=== PATIENT | male | born 1980 | race Caucasian/White ===

== ENCOUNTER 2018-08-02 07:50 | Emergency (ER) | payer SELFPAY ==
[~2018-08-02] VITALS: Ht 182.9 cm; Wt 95.3 kg
[2018-08-02 07:55] VITALS: BP 144/94
[2018-08-02] MEDS ORDERED: D-ME118S2 PO (08:29)
[2018-08-02] MEDS ORDERED: IBUP800T19 PO (08:29)
[2018-08-02] MEDS ORDERED: AMOX500T PO (08:29)
--- NOTE | 2018-08-02 08:30 | PHYS DOC ---
Past History Past Medical History: Diabetes Past Surgical History: No Surgical History Smoking: Chew Additional Smoking Information: CHEWS TOBACCO Alcohol Use: Occasionally Additional Alcohol Information: DRINKS EVERY OTHER DAY Drug Use: None Adult General Chief Complaint Chief Complaint: SORE THROAT HPI HPI Patient is a 37-year-old male presents with sore throat, congestion, and cough that is been present for the past 2-3 days. Patient's diagnosed with strep throat and bronchitis yesterday. Subjective fever at home, no home thermometer available. Nothing makes the symptoms better or worse. No difficulty breathing. No difficulty swallowing but increased discomfort with swallowing. Symptoms are moderate in intensity.[] Review of Systems Review of Systems Constitutional: Denies weight loss or chills[] Eyes: Denies change in visual acuity, redness, or eye pain [] HENT: See history of present illness[] Respiratory: Denies shortness of breath, see history of present illness [] Cardiovascular: No chest pain or palpitations[] GI: Denies abdominal pain, nausea, vomiting, bloody stools or diarrhea [] : Denies dysuria or hematuria [] Musculoskeletal: Denies back pain or joint pain [] Integument: Denies rash or skin lesions [] Neurologic: Denies headache, focal weakness or sensory changes [] Endocrine: Denies polyuria or polydipsia [] All other systems were reviewed and found to be within normal limits, except as documented in this note. Physical Exam Physical Exam Constitutional: Well developed, well nourished, no acute distress, non-toxic appearance. [] HENT: Normocephalic, atraumatic, bilateral external ears normal, oropharynx moist, bilateral tonsillar edema with mild exudates, uvula midline, normal voice, nose normal. [] Eyes: PERRLA, EOMI, conjunctiva normal, no discharge. [] Neck: Normal range of motion, no tenderness, supple, no stridor. Anterior chain lymphadenopathy is present [] Cardiovascular:Heart rate regular rhythm, no murmur [] Lungs & Thorax: Bilateral breath sounds clear to auscultation [] Abdomen: Bowel sounds normal, soft, no tenderness, no masses, no pulsatile masses. [] Skin: Warm, dry, no erythema, no rash. [] Back: No tenderness, no CVA tenderness. [] Extremities: No tenderness, no cyanosis, no clubbing, ROM intact, no edema. [] Neurologic: Alert and oriented X 3, normal motor function, normal sensory function, no focal deficits noted. [] Psychologic: Affect normal, judgement normal, mood normal. [] Current Patient Data Vital Signs Vital Signs Date Time Temp Pulse Resp B/P (MAP) Pulse Ox O2 Delivery O2 Flow Rate FiO2 08/02/18 07:55 98.5 90 18 100 Room Air EKG EKG [] Radiology/Procedures Radiology/Procedures [] Course & Med Decision Making Course & Med Decision Making Pertinent Labs and Imaging studies reviewed. (See chart for details) Medical decision making: We'll cover patient for exudative pharyngitis given t hat his has strep pharyngitis. No evidence of peritonsillar abscess, no evidence of meningitis or encephalitis.[] Dragon Disclaimer Dragon Disclaimer This electronic medical record was generated, in whole or in part, using a voice recognition dictation system. Departure Departure: Impression: Primary Impression: Exudative pharyngitis Additional Impression: Cough Disposition: 01 HOME, SELF-CARE Condition: IMPROVED Referrals: [facility] (PCP) Patient Instructions: Cough, Adult, Viral and Bacterial Pharyngitis Additional Instructions: Drink plenty of fluids. Follow-up with your regular doctor. If you do not have regular doctor list of local clinics will be provided for you. Return to the ER if unable to tolerate liquids, difficulty breathing, or any other concerns. Scripts Ibuprofen (IBUPROFEN) 800 Mg Tablet 1 TAB PO TID for pain or fever, #30 TAB Prov: MELISSA DIAMOND DO 08/02/18 Amoxicillin (AMOXICILLIN) 500 Mg Tablet 1 TAB PO TID for pharyngitis, #30 TAB Prov: MELISSA DIAMOND DO 08/02/18 D-Methorphan Hb/Prometh Hcl (PROMETHAZINE-DM SYRUP) 118 Ml Syrup 5 ML PO PRN Q4HRS for CONGESTION, #120 ML Prov: MELISSA DIAMOND DO 08/02/18 Problem Qualifiers MELISSA IDAMOND DO Aug 02, 2018 08:30
== END 2018-08-02 08:47 | disposition home or self-care (01) ==
LOC: ER 07:50
DX: J02.9 Acute pharyngitis, unspecified (principal); E11.9 Type 2 diabetes mellitus without complications; F17.220 Nicotine dependence, chewing tobacco, uncomplicated
CPT/HCPCS: 99283